=== PATIENT | male | born 1995 | race Caucasian/White ===

== ENCOUNTER 2022-11-07 08:57 | Emergency (ER) | payer SELFPAY ==
--- NOTE | ~2022-11-07 | CT_ITS ---
EXAMINATION: CT HEAD WITHOUT CONTRAST CLINICAL INFORMATION: head trauma with likely LOC COMPARISON: None TECHNIQUE: Contiguous axial imaging was performed from the skull base to vertex without intravenous administration of contrast. This CT examination was performed using dose optimization techniques as appropriate, variously including the following: *Automated exposure control *Adjustment of mA and/or kV according to patient size (this includes techniques or standardized protocols for targeted exams where dose is matched to indication/reason for exam; i.e. extremities or head) *Use of iterative reconstruction technique Dose: 713 mGy-cm FINDINGS: There is no evidence of acute intracranial hemorrhage or territorial infarction. No abnormal mass-effect or midline shift is seen. Ceballos to white matter differentiation is well preserved. No extra axial fluid collections. The ventricles are normal in size and configuration. There is no abnormal attenuation within the brain parenchyma. Osseous structures are intact. Calvarium is intact without fracture. There is a very thin layer of soft tissue attenuation (2 mm) overlying the right parietal calvarium near the vertex which likely corresponds to a very thin subgaleal hematoma. Scalp thickening from an old injury is also on the differential. A subtle skin laceration may be present in this region. The sinuses and mastoid air cells are clear. CT/CT head/brain wo IV con IMPRESSION: No acute intracranial pathology. Probable thin subgaleal hematoma over the right parietal calvarium. Recommend correlation with the site of injury.
[2022-11-07 09:12] VITALS: BP 137/80; PULSE 71; RESP 16; TEMP 36.6; O2SAT 98; BMI 22.2
--- NOTE | 2022-11-07 09:19 | ED.HEATRA ---
HPI - Head Injury General Chief complaint: Head Injury Stated complaint: Fall/Head inj Time Seen by Provider: 11/07/22 09:18 Source: patient Mode of arrival: ambulatory Limitations: no limitations History of Present Illness HPI Narrative: at 1am he was at a bar, slipped on ice and hit the top of the head. Doesn't think he passed out. Noticed that the top of his head was bleeding. States he was able to find his sister. Complaint: head injury Onset (ago): hour(s) Mechanism of Injury: fall Place: other (street) Loss of Consciousness: unsure Related Data Allergies Allergy/AdvReac Type Severity Reaction Status Date / Time No Known Allergies Allergy Verified 11/07/22 09:11 [No Known Allergies*] Review of Systems Review of Systems: Yes all other systems are reviewed and are negative ENT: Comments: head pain Neurologic: Denies Sensory deficit (Neuro) Comments: LOC [facility] Social History Social History Advance Directives: No Advance Directives Information Provided: Yes Physical Exam Vital Signs: Vital Signs: Last Vital Signs Temp 98 F 11/07/22 09:12 Pulse 71 11/07/22 09:12 Resp 16 11/07/22 09:12 BP 137/80 11/07/22 09:12 Pulse Ox 98 11/07/22 09:12 O2 Del Method 11/07/22 09:12 BMI result Body Mass Index 22.2 Const: General: healthy appearing Nutritional Appearance: average body habitus Orientation/consciousness: oriented to person and patient oriented x3 Limitations: no limitations HEENT: Other: vertex of head with multiple abrasions Ears: external ears normal General nose exam: Normal external nose present Mouth: Normal oral and palatal mucosa present and oropharynx normal Throat: Yes posterior oropharynx normal Eyes: General: appearance normal, both eyes and all related structures Neck: Other: supple Neck: Yes normal visual inspection Chest: Chest palpation & inspection: normal inspection of the chest Resp: Auscultation: clear to auscultation bilaterally Cardio: Jugular venous distension: no JVD Rate: regular rate Rhythm: regular rhythm Heart sounds: S1 normal heart sound present and S2 normal heart sound present GI: Inspection: Yes normal to inspection Palpation (GI): Soft to palpation, nontender and No hepatosplenomegaly present Auscultation: normal bowel sounds : General: Yes no CVA tenderness Back/Spine/Pelvis: Back: no CVA tenderness Skin: General skin exam: no rashes or lesions noted Neuro: Other: was able to do serial 7's and spell world backwards General: oriented to person and patient oriented x3 Cranial nerves: Yes CN's II-XII intact bilaterally Motor exam (neuro): 5/5 motor strength present throughout Sensory Exam: No Sensory deficit (Neuro) Extrem: General: Yes normal to inspection Psych: Appearance: grossly normal Course Reevaluation(s) Reevaluation #1: nonfocal neuro exam, able to do serial 7s and World backwards, Head CT negative will dc home Time: 10:05 Medications Administered Discontinued Medications Generic Name Dose Route Start Last Admin Trade Name Freq PRN Reason Stop Dose Admin Diphtheria/Tetanus/Acell Pertussis 0.5 ml 11/07/22 09:36 11/07/22 09:50 Diphth,Pertus(Acell),Tet Adult 0.5 Ml Syringe IM 11/07/22 09:37 0.5 ml .ONCE ONE Administration Medical Decision Making Differential Diagnosis Differential Diagnoses: The differential diagnosis associated with the presentation includes (cerebral bleed, concussion, head contusion, head abrasion) Independent Interpretation I performed an independent interpretation of an: CT Scan (no blood seen) Discharge Plan Discharge Clinical Impression: Closed head injury, Abrasion of scalp Patient Disposition: Home, Self-Care Instructions: Head Injury (ED), Abrasion (ED) Additional Instructions: apply bacitracin 2 times a day for one week Referrals: Physician,None [Primary Care Provider] - 1 week
[2022-11-07] MEDS: Diphth,Pertus(ACell),Tet Adult 0.5 ML SYRINGE IM (09:50)
== END 2022-11-07 11:00 | disposition home or self-care (01) ==
PROVIDERS: Emergency Provider Emergency Medicine
DX: S09.90XA Unspecified injury of head, initial encounter (principal); S00.01XA Abrasion of scalp, initial encounter; W00.0XXA Fall on same level due to ice and snow, initial encounter; Y93.89 Activity, other specified; Y92.414 Local residential or business street as the place of occurrence of the external cause; Y99.9 Unspecified external cause status
CPT/HCPCS: 70450; 90471; 90715; 99283; 99284

== ENCOUNTER 2024-05-14 13:15 | Emergency (ER) | payer SELFPAY ==
--- NOTE | ~2024-05-14 | XR_ITS ---
EXAMINATION: XR HAND, RIGHT CLINICAL INFORMATION: Punched mirror COMPARISON: None available. TECHNIQUE: PA, lateral, and oblique views of the right hand. FINDINGS: Soft tissue swelling is present medial to the fifth MCP joint. No acute fracture or dislocation is seen. Alignment is maintained. No joint space narrowing is identified. XR/XR hand RT min 3V IMPRESSION: Soft tissue swelling. No acute fracture or dislocation is seen. Electronically signed by: Pillo Yun MD 05/14/2024 03:26 PM EDT
[2024-05-14 14:19] VITALS: BP 127/85; PULSE 67; RESP 16; TEMP 36.9; O2SAT 97
--- NOTE | 2024-05-14 14:19 | ED_ITS ---
HPI - Extremity Injury (Upper) General Chief Complaint: Wound/Laceration Stated Complaint: r hand laceration Time Seen by Provider: 05/14/24 15:23 Source: patient Mode of arrival: ambulatory Limitations: no limitations History of Present Illness ED Provider: DAMION VELASQUEZ PA-C HPI narrative: 28 year old right hand dominant male presents to the ED today with laceration to his right hand s/p punching a mirror this morning. Admits the mirror broke. Endorses laceration to right fifth knuckle. Bleeding controlled. Denies difficulty moving digits. Tetanus UTD. Related Data Allergies Allergy/AdvReac Type Severity Reaction Status Date / Time No Known Allergies Allergy Verified 05/14/24 14:21 [No Known Allergies*] Review of Systems Review of Systems: Constitutional: No fever, chills, fatigue, night sweats, weight changes ENT/Mouth: No ear pain, hearing loss, nasal congestion, sinus pain, rhinorrhea, sore throat Eyes: No eye pain, swelling, redness, vision changes, discharge Cardio: No chest pain, palpitations, MOMIN, orthopnea, peripheral edema Pulm: No SOB, cough, sputum, wheezing, dyspnea, hemoptysis GI: No nausea, vomiting, hematemesis, abdominal pain, diarrhea, constipation, hematochezia, melena : No irregular bleeding, dysuria, frequency, urgency, hesitancy, hematuria, flank pain, urinary flow changes, urinary incontinence or retention MSK: No back pain, neck pain, joint pain, myalgias, +right hand laceration Skin: No lesions, rashes Neuro: No weakness, numbness, paresthesias, LOC, dizziness, headache Psych: No anxiety/panic, depression, SI/HI, AH/VH All other systems reviewed and are negative. [facility] Past Medical History Attestation statement: The following information was validated with the patient. Source: old records reviewed and nursing notes reviewed Social History Social History Advance Directives: No Advance Directives Information Provided: No Physical Exam Vital Signs: Vital Signs: Last Vital Signs Temp 98.4 F 05/14/24 14:19 Pulse 67 05/14/24 14:19 Resp 16 05/14/24 14:19 BP 127/85 05/14/24 14:19 Pulse Ox 97 05/14/24 14:19 O2 Del Method Room Air 05/14/24 14:19 BMI result Body Mass Index 20.0 Vital signs stable General: Well appearing, in no acute distress. Skin: Warm, dry, intact. Head: Normocephalic, atraumatic. Neck: Supple. FROM. Cardiac: Chest wall symmetric. RRR. Lungs: Normal respiratory effort without accessory muscle use Ext: macerated laceration to right fifth MCP. Bleeding controlled. No obvious FB. FROM intact. Finger to thumb opposition intact. Application Consultant strength intact. 2+ radial/ ulnar pulse intact. Neuro: AOx3. Normal speech. Ambulating with steady gait. Psych: Appropriate mood and affect. Responds appropriately to questions. Course Course Course Narrative: This is a Rapid Medical Exam performed in triage by Carly Santiago PA-C. Full HPI, ROS and PE to be performed by primary ED provider. 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 Unknown retained FB. PE: macerated laceration to R 5th MCP. FROM intact. bleeding controlled Plan: XR, suture repair Reevaluation(s) Reevaluation #1: 3368 -- laceration to right MCP repaired with 3 sutures. Bleeding controlled. Patient tolerated procedure well. I did irrigate the area extensively and not appreciate any retained glass. Advised patient to return to the ED in 10- 14 days for suture removal. He verbalizes understanding. Patient has remained stable throughout ED visit today. Discussed worrisome signs and symptoms and when to return to the ED. All questions answered at this time. Patient is agreeable with disposition and stable for discharge. Medications Administered Discontinued Medications Generic Name Dose Route Start Last Admin Trade Name Freq PRN Reason Stop Dose Admin Lidocaine HCl 5 ml 05/14/24 15:53 05/14/24 16:06 Lidocaine Hcl 1 % Mpf 5 Ml Vial INFILTRATI 05/14/24 15:54 5 ml ONCE ONE Administration Medical Decision Making Medical Decision Making MDM Narrative: 28 year old right hand dominant male presents to the ED today with laceration to his right hand s/p punching a mirror this morning. Vital signs stable. Patient is nontoxic appearing and in NAD. On exam of right hand, there's a macerated laceration to right fifth MCP. Bleeding controlled. No obvious FB. FROM intact. Finger to thumb opposition intact. Application Consultant strength intact. 2+ radial/ ulnar pulse intact. Differential diagnosis includes abrasion, laceration, fracture XR ordered in triage. Plan to review imaging and repair laceration. Tetanus UTD. Differential Diagnosis Differential Diagnoses: The differential diagnosis associated with the presentation includes as above. Admission/Observation Not indicated. Independent Interpretation I performed an independent interpretation of an: Plain X-Ray Interpretation: XR right hand without fracture or dislocation, agree with radiologist's interpretation Radiology Impression Discussion of test interpretation with radiology: I have reviewed the radiologist's reading. Radiologist Impression: EXAMINATION: XR HAND, RIGHT CLINICAL INFORMATION: Punched mirror COMPARISON: None available. TECHNIQUE: PA, lateral, and oblique views of the right hand. FINDINGS: Soft tissue swelling is present medial to the fifth MCP joint. No acute fracture or dislocation is seen. Alignment is maintained. No joint space narrowing is identified. XR/XR hand RT min 3V IMPRESSION: Soft tissue swelling. No acute fracture or dislocation is seen. Electronically signed by: Pillo Yun MD 05/14/2024 03:26 PM EDT Prescription Management I considered prescription management with: Pain Medication (tylenol/ motrin) Social Determinants Patient?s care significantly limited by Social Determinants of Health including: Other Social Determinant of Health Procedures Laceration Laceration 1: Site: hand Side (If applicable): right Size (cm): 1 Description: other (macerated) Local Anesthetic: lidocaine 1% Amount of anesthesia used (mL): 5 Pre-repair: wound explored, irrigated extensively and deep structures intact Skin layer closed with: nylon Size (cm): 3-0 Number of sutures: 3 Technique: simple, interrupted Critical Care Time Critical Care Time Critical Care Time: No Discharge Plan Discharge Clinical Impression: Laceration Patient Disposition: Home, Self-Care Instructions: Care For Your Stitches (ED), Laceration (ED), Stitches Removal (ED) Additional Instructions: You have been evaluated in the Emergency Department today for a laceration to your right hand. Your laceration was repaired in the ED with sutures.? Please keep the area surrounding the laceration clean and dry. Please keep the area out of the sunlight for the next 6 months to help prevent scarring.? If you develop redness or swelling at the site of your laceration please come back to the ER for a wound check. I recommend you take 600mg ibuprofen every 6 hours or tylenol 650mg every 6 hours as needed for pain. If needed, you can alternate these medications so that you take one medication every 3 hours. For example, at noon take ibuprofen, then at 3pm take tylenol, then at 6pm take ibuprofen. Please follow up with your primary care physician in 10-14 days for suture removal. You can also return to the ER or another urgent care facility for this service. Return to the Emergency Department if you experience discharge from your laceration, redness around your laceration, warmth around your laceration, fever, vomiting, numbness, tingling, or any other concerning symptoms. In the case of an emergency call 911. Print Language: German
[2024-05-14] MEDS: Lidocaine HCl 1 % MPF 5 ML VIAL INFILTRATI (16:06)
[2024-05-14 16:53] VITALS: BP 113/63; PULSE 68; RESP 18; TEMP 36.6; O2SAT 98
[2024-05-14 16:54] VITALS: BP 113/63; PULSE 68; RESP 18; TEMP 36.6; O2SAT 98
== END 2024-05-14 16:55 | disposition home or self-care (01) ==
PROVIDERS: Emergency Provider Emergency Medicine
DX: S61.411A Laceration without foreign body of right hand, initial encounter (principal); M79.641 Pain in right hand; W25.XXXA Contact with sharp glass, initial encounter; Y93.89 Activity, other specified; Y92.89 Other specified places as the place of occurrence of the external cause; Y99.8 Other external cause status
CPT/HCPCS: 12041; 73130; 99282; 99284